=== PATIENT | female | born 1955 | race Caucasian/White ===

== ENCOUNTER 2017-01-04 18:46 | Emergency (ER) | payer OTHER ==
[~2017-01-04] VITALS: Ht 167.6 cm; Wt 66.5 kg
[~2017-01-04 18:46] MED LIST: FLEXERIL10 MG PO
[2017-01-04] MEDS ORDERED: PREDNISONE20 MG PO (20:40)
[2017-01-04] MEDS ORDERED: AMOXICILLIN500 MG PO (20:40)
[2017-01-04 20:48] VITALS: BP 157/95
== END 2017-01-04 20:50 | disposition home or self-care (01) ==
LOC: EME 18:46
DX: H10.9 Unspecified conjunctivitis (principal); J02.9 Acute pharyngitis, unspecified
CPT/HCPCS: 87651 90; 99281; 99284; J7512